=== PATIENT | female | born 1995 | race Caucasian/White ===

== ENCOUNTER 2019-10-05 09:13 | Emergency (ER) | payer OTHER, SELFPAY ==
[2019-10-05 09:24] VITALS: BP 107/62; PULSE 104; RESP 16; TEMP 36.7; O2SAT 99
--- NOTE | 2019-10-05 09:57 | ED.URI ---
HPI - URI/Sore Throat General Chief Complaint: Upper Respiratory Infection Stated Complaint: Sore Throat Time Seen by Provider: 10/05/19 09:57 Source: patient Mode of arrival: ambulatory Limitations: no limitations History of Present Illness HPI Narrative: Christina Arvizu is a 24 yo female with no PMH who comes to express care with severe sore throat x4 days that is worsening, rhinorrhea, and fever-states he has had difficulty swallowing the last 24 hours, states can barely swallow of liquids Related Data Allergies Allergy/AdvReac Type Severity Reaction Status Date / Time No Known Allergies Allergy Unknown Unverified 05/14/18 15:23 Review of Systems Review of Systems: Narrative: CONSTITUTIONAL: Denies fever, chills, sweats. EYES: Denies visual changes, redness, discharge. ENT: Denies rhinorrhea, has congestion, sore throat, mo otalgia. CARDIOVASCULAR: Denies chest pain, palpitations, edema. RESPIRATORY: Denies dyspnea, wheezing, cough GASTROINTESTINAL: Denies abdominal pain, nausea, vomiting, diarrhea. GENITOURINARY: Denies dysuria, hematuria, abnormal discharge SKIN: Denies rash or itching. MUSCULOSKELETAL: Denies acute back pain, joint pain, or myalgia. NEUROLOGIC: Denies numbness, or focal weakness. PSYCHIATRIC: Denies anxiety or depression. PENDING SALE TO [facility] Family History Family History (Updated 10/05/19 @ 10:00 by Beatriz Worthy CNP) Other No active medical problems Social History Social History (Updated 10/05/19 @ 10:00 by Beatriz Worthy CNP) Smoking status: Never smoker Alcohol intake: never Substance use: never Gender identity (if verbalized by the patient): Female Comments At time of signature, I agree with nursing past medical, surgical, social and family history. There is no relevant family history pertinent to the presenting complaint. Exam Narrative: Exam Narrative: GENERAL: This is a well-nourished, well-developed patient, in moderate distress. HEAD: normocephalic, atraumatic. EYES: Sclera clear/white. Vision is grossly intact. EARS: External ears normal, auditory canals clear and without drainage, TMs normal without perforation. Hearing grossly intact. NOSE: External nose normal with nasal discharge, nares with redness, has rhinorrhea. THROAT: Mucous membranes moist, posterior pharynx erythema with tonsillar swelling-putrid smell to pharyngx NECK: Neck supple, non-tender CARDIOVASCULAR: Regular rate and rhythm without murmurs, gallops, or rubs. RESPIRATORY: Clear to auscultation. Breath sounds equal bilaterally. No wheezes, rales, or rhonchi. GASTROINTESTINAL: Abdomen soft, non-tender, nondistended. Bowel sounds are active. No hepato-splenomegaly, or palpable masses. No guarding. SKIN: warm, intact with no suspicious lesions or rash, good texture and turgor. NEURO: awake, alert, and oriented to person, place and time. There were no obvious focal neurologic abnormalities. Steady gait EXTREMITIES: Normal range of motion. No edema. . BACK: Nontender without deformity or crepitance. No flank tenderness. Course Course Emergency Course: Strep-initial negative but treated based on appearance Vital Signs Vital signs: Vital Signs Temperature 98.1 F 10/05/19 09:24 Pulse Rate 104 H 10/05/19 09:24 Respiratory Rate 16 10/05/19 09:24 Blood Pressure 107/62 10/05/19 09:24 Pulse Oximetry 99 10/05/19 09:24 Temperature 98.1 F 10/05/19 09:24 Pulse Rate 104 H 10/05/19 09:24 Respiratory Rate 16 10/05/19 09:24 Blood Pressure 107/62 10/05/19 09:24 Pulse Oximetry 99 10/05/19 09:24 MDM - URI/Sore Throat Differential Diagnosis Differential diagnosis: Likely upper respiratory infection, sinusitis and pharyngitis Lab Data Labs: Influenza A Screen Negative Reference Range: Negative Influenza B Screen Negative Reference Range: Negative Strep Screen Presumptive Negative *(Reference Range: Negative)* Disc
== END 2019-10-05 10:09 | disposition home or self-care (01) ==
PROVIDERS: Emergency Provider Nurse Practitioner
DX: J02.0 Streptococcal pharyngitis (principal)
CPT/HCPCS: 87081; 87804; 87880; 99213; G0463

== ENCOUNTER 2020-07-26 09:17 | Emergency (ER) | payer OTHER, SELFPAY ==
[2020-07-26 09:30] VITALS: BP 101/67; PULSE 91; RESP 18; TEMP 37.3; O2SAT 100
--- NOTE | 2020-07-26 09:34 | ED.EAR ---
HPI - Ear Problem General Chief complaint: Ear Stated complaint: right ear pain Time Seen by Provider: 07/26/20 09:30 Source: patient and RN notes reviewed Mode of arrival: ambulatory Limitations: no limitations History of Present Illness HPI Narrative: 24 year old female who presents [facility] with complaints of right ear pain for the past 2 days. Patient states that she has noted some ringing and echoing in her right ear along with discomfort. Patient admits to some rhinitis with clear drainage, denies any sinus pressure or headache pain, denies any sore throat or cough. Patient denies any tragal pain or any dayana-auricle tenderness or swelling, has not taken any OTC medications for pain or any OTC cold medications. Patient denies any known fevers, chills or sweats, denies any shortness of breath or any wheezing, patient states no tobacco use. MD Complaint: ear pain Location: right ear Duration: intermittent Severity: moderate Relieving factors: nothing Exacerbating factors: nothing Context: Reports other (uses fan at work also some nasal drainage) Discharge from ear: Reports no Associated symptoms ear: tinnitus, rhinorrhea and other (pressure to right ear) Treatment prior to arrival: none Related Data Allergies Allergy/AdvReac Type Severity Reaction Status Date / Time No Known Allergies Allergy Unknown Unverified 07/26/20 09:31 Review of Systems Review of Systems: Narrative: CONSTITUTIONAL: Denies fever, chills, or sweats. EYES: Denies visual changes, redness, or discharge. ENT: Positive for clear rhinorrhea, no nasal congestion, sore throat, positive right otalgia. CARDIOVASCULAR: Denies chest pain, palpitations, or edema. RESPIRATORY: Denies cough or dyspnea. GASTROINTESTINAL: Denies abdominal pain, nausea, vomiting, or diarrhea. GENITOURINARY: Denies dysuria or hematuria. SKIN: Denies rash or itching. MUSCULOSKELETAL: Denies back pain, joint pain, or myalgia. NEUROLOGIC: Denies headache, numbness, or weakness. PSYCHIATRIC: Denies anxiety or depression. All systems reviewed & are unremarkable except as noted in HPI and below PMFSH Past Medical History Medical History (Updated 07/26/20 @ 10:06 by Alivia Todd NP) Bronchitis Surgical History Surgical History (Updated 07/26/20 @ 10:06 by Alivia L. Perez, [employer]PUT[employer]) History of tonsillectomy Family History Family History Other No active medical problems Social History Social History Smoking status: Never smoker Alcohol intake: never Substance use: never Gender identity (if verbalized by the patient): Female Comments At time of signature, agree with nursing past medical, surgical, social and family history. There is no relevant family history pertinent to the presenting complaint Exam Narrative: Exam Narrative: GENERAL: Well-appearing, well-nourished, and in no acute distress. HEAD: Normocephalic, atraumatic. EYES: PERRLA and EOMI. ENT: Nares light red, clear rhinorrhea, no epistaxis, denies any pressure to sinus area or headache on exam. Mucous membranes moist.Right TM normal with good light reflex,canal with redness and irritation, no drainage noted, Left TM normal with good light reflex, Throat pink with no lesions or exudates, post nasal drainage noted in back of throat, no tonsils NECK: Supple.no lymphadenopathy CHEST: Clear to auscultation. No respiratory distress.SAO2 100% on room air. HEART: Regular rate and rhythm. No murmur heard. Normal peripheral pulses. ABDOMEN: Soft, nontender, nondistended, normal active bowel sounds. EXTREMITIES: Normal range of motion. No edema. SKIN: Warm, dry, no rash. NEURO: No focal deficits. Alert and oriented x3. Course Vital Signs Vital signs: Vital Signs Temperature 37.3 C 07/26/20 09:30 Pulse Rate 91 07/26/20 09:30 Respiratory Rate 18 07/26/20 09:30 Blood Pressure 101/67 07/26
== END 2020-07-26 09:53 | disposition home or self-care (01) ==
PROVIDERS: Emergency Provider Registered Nurse; PCP Nurse Practitioner Family
DX: H60.91 Unspecified otitis externa, right ear (principal)
CPT/HCPCS: 99213; G0463

== ENCOUNTER 2021-05-09 10:45 | Emergency (ER) | payer SELFPAY ==
[2021-05-09 10:55] VITALS: BP 113/71; PULSE 87; RESP 16; TEMP 36.3; O2SAT 100
[2021-05-09 11:06] VITALS: BP 113/71; PULSE 87; RESP 16; TEMP 36.3; O2SAT 100
--- NOTE | 2021-05-09 11:12 | ED.NAVMDI ---
HPI - Nausea/Vomiting/Diarrhea General Chief complaint: Nausea/Vomiting/Diarrhea Stated complaint: abd pain/chills Time Seen by Provider: 05/09/21 11:12 Source: patient Mode of arrival: ambulatory Limitations: no limitations History of Present Illness HPI Narrative: Christina Arvizu is a 25 yo female with no PMH who [facility] of nausea and diarrhea for 3 days. She was seen yesterday by physician at a clinic to get her Nexplanon removed from the left arm. She denies any dysuria or any vomiting but states that she is nauseated most of the last 3 days. She is drinking fluids and eating some without difficulty Related Data Allergies Allergy/AdvReac Type Severity Reaction Status Date / Time No Known Allergies Allergy Unknown Unverified 05/09/21 10:53 Review of Systems Review of Systems: CONSTITUTIONAL: Denies fever, chills, sweats. EYES: Denies visual changes, redness, discharge. ENT: Denies rhinorrhea, congestion, sore throat, otalgia. CARDIOVASCULAR: Denies chest pain, palpitations, edema. RESPIRATORY: Denies dyspnea, wheezing, cough GASTROINTESTINAL: Denies abdominal pain, has nausea, vomiting, has diarrhea. GENITOURINARY: Denies dysuria, hematuria, abnormal discharge SKIN: Denies rash or itching. NEUROLOGIC: Denies numbness, or focal weakness. PSYCHIATRIC: Denies anxiety or depression. PMFSH Past Medical History Medical History Bronchitis Surgical History Surgical History History of tonsillectomy Family History Family History Other No active medical problems Social History Social History Smoking status: Never smoker Alcohol intake: never Substance use: never Gender identity (if verbalized by the patient): Female Comments At time of signature, I agree with nursing past medical, surgical, social and family history. There is no relevant family history pertinent to the presenting complaint. Exam Narrative: GENERAL: This is a well-nourished, well-developed patient, in mild distress. HEAD: normocephalic, atraumatic. EYES: Sclera clear/white. Vision is grossly intact. EARS: External ears normal, Hearing grossly intact. NOSE: External nose normal without nasal discharge, nares without redness, no rhinorrhea. THROAT: Mucous membranes moist, NECK: Neck supple, non-tender CARDIOVASCULAR: Regular rate and rhythm without murmurs, gallops, or rubs. RESPIRATORY: Clear to auscultation. Breath sounds equal bilaterally. No wheezes, rales, or rhonchi. GASTROINTESTINAL: Abdomen soft, non-tender, SKIN: warm, intact with no suspicious lesions or rash, good texture and turgor. Dressing on left upper arm from Nexplanon removal NEURO: awake, alert, and oriented to person, place and time. There were no obvious focal neurologic abnormalities. Steady gait EXTREMITIES: Normal range of motion. BACK: Nontender without deformity Course Course Emergency Course: Patient has had 3 days of diarrhea nausea with no other symptoms and has been able to eat UA 1+ bili, neg otherwise, Hcg - negative Rapid Covid done- negative Given Zofran and Imodium- monitor intake - if symptons not improve, go to pcp Vital Signs Vital signs: Vital Signs Temperature 97.3 F L 05/09/21 10:55 Pulse Rate 87 05/09/21 10:55 Respiratory Rate 16 05/09/21 10:55 Blood Pressure 113/71 05/09/21 10:55 Pulse Oximetry 100 05/09/21 10:55 Temperature 97.3 F L 05/09/21 11:06 Pulse Rate 87 05/09/21 11:06 Respiratory Rate 16 05/09/21 11:06 Blood Pressure 113/71 05/09/21 11:06 Pulse Oximetry 100 05/09/21 11:06 MDM - Nausea/Vomiting/Diarrhea Lab Data Labs: Lab Results 05/09/21 Range/Units 11:30 POC SARS CoV-2 Ag Negative (Negative) UCG Bedside Result
== END 2021-05-09 12:07 | disposition home or self-care (01) ==
PROVIDERS: Emergency Provider Nurse Practitioner
DX: K52.9 Noninfective gastroenteritis and colitis, unspecified (principal); Z20.822 Contact with and (suspected) exposure to COVID-19
CPT/HCPCS: 81003; 81025; 87426; 99213; C9803; G0463

== ENCOUNTER 2021-08-16 05:27 | Emergency (ER) | payer MEDICAID, SELFPAY ==
[2021-08-16 05:40] VITALS: BP 101/77; PULSE 99; RESP 19; TEMP 37.5; O2SAT 100
[2021-08-16] MEDS: SODIUM CHLORIDE 0.9% IV 1,000 ML 999 ML IV CONT (06:04)
[2021-08-16] MEDS: ONDANSETRON INJ 4 MG/2 ML VIAL IV PUSH (06:04)
[2021-08-16 06:06] LABS: Basophils Percent Auto 0.4 % (0.2-1.2); Eosinophils Absolute Auto 0.1 K/mm3 (0-0.3); Eosinophils Percent Auto 0.6 % (0-4.4); Hematocrit 41.9 % (37.0-47.0); Hemoglobin 13.9 g/dL (12.0-15.0); Immature Granulocyte Absolute 0.04 K/mm3 (0.00-0.031); Immature Granulocyte Percent A 0.4 % (0-0.5); Lymphocytes Percent Auto 5.3 % (18.3-44.2); Mean Corpuscular HGB Conc 33.2 g/dl (32-36); Mean Corpuscular Hemoglobin 29.6 pg (26-34); Mean Corpuscular Volume 89.3 fl (80-100); Mean Platelet Volume 11.9 fl (7.4-10.4); Monocytes Absolute Auto 0.6 K/mm3 (0.1-0.6); Monocytes Percent Auto 4.8 % (2.6-8.5); Neutrophils Absolute Auto 10.1 K/mm3 (1.3-6.7); Neutrophils Percent Auto 88.5 % (45.5-73.1); Platelet Count Result 141 k/mm3 (150-375); Red Blood Count 4.69 M/mm3 (4.2-5.4); Red Cell Distribution Width 12.6 % (11.5-14.5); White Blood Count 11.4 K/mm3 (4.5-10.0)
--- NOTE | 2021-08-16 06:06 | ED.NAVMDI ---
HPI - Nausea/Vomiting/Diarrhea General Chief complaint: Nausea/Vomiting/Diarrhea Stated complaint: N/V/D since midnight Time Seen by Provider: 08/16/21 05:33 History of Present Illness HPI Narrative: Patient is a 25-year-old female who presents ER with vomiting and diarrhea. Reports at midnight she woke up and started having 1 loose stool and emesis each hour. No blood in either. No fevers or chills or sweats. No known sick contacts. Reports she had a bratwurst for dinner. She tried taking some Zofran without improvement. Related Data Allergies Allergy/AdvReac Type Severity Reaction Status Date / Time No Known Allergies Allergy Unknown Verified 08/16/21 05:40 Review of Systems Review of Systems: All systems reviewed & are unremarkable except as noted in HPI and below Constitutional: Constitutional: Denies chills, Denies fever(s) and Denies weakness ENT: Denies nasal congestion and Denies sore throat Gastrointestinal: Gastrointestinal: Denies abdominal pain, Denies constipation, Reports diarrhea, Reports nausea and Reports vomiting Genitourinary: Genitourinary: Denies nocturia, Denies dysuria and Denies flank pain PMFSH Past Medical History Medical History Bronchitis Surgical History Surgical History History of tonsillectomy Family History Family History Other No active medical problems Social History Social History Smoking status: Never smoker Alcohol intake: never Substance use: never Gender identity (if verbalized by the patient): Female Exam Narrative: GENERAL: Well-appearing, well-nourished, and in no acute distress. HEAD: Normocephalic, atraumatic. NECK: Supple. CHEST: Clear to auscultation. No respiratory distress. HEART: Regular rate and rhythm. Normal peripheral pulses. ABDOMEN: Soft, nontender, nondistended. EXTREMITIES: Normal range of motion. No edema. SKIN: Warm, dry, no rash. NEURO: Alert and oriented x3. PSYCH: Normal mood and affect. Course Course Emergency Course: Patient informed of results. Feels improved. Discharge home. Abdominal exam is benign without localizing tenderness. Vital Signs Vital signs: Vital Signs Temperature 99.5 F 08/16/21 05:40 Pulse Rate 99 08/16/21 05:40 Respiratory Rate 19 08/16/21 05:40 Blood Pressure 101/77 08/16/21 05:40 Pulse Oximetry 100 08/16/21 05:40 Temperature 99.5 F 08/16/21 05:40 Pulse Rate 99 08/16/21 05:40 Respiratory Rate 19 08/16/21 05:40 Blood Pressure 101/77 08/16/21 05:40 Pulse Oximetry 100 08/16/21 05:40 MDM - Nausea/Vomiting/Diarrhea Lab Data Result diagrams: 08/16/21 06:01 08/16/21 06:01 Labs: Lab Results 08/16/21 08/16/21 Range/Units 06:01 06:01 WBC 11.4 H (4.5-10.0) K/mm3 RBC 4.69 (4.2-5.4) M/mm3 Hgb 13.9 (12.0-15.0) g/dL Hct 41.9 (37.0-47.0) % MCV 89.3 (80-100) fl MCH 29.6 (26-34) pg MCHC 33.2 (32-36) g/dl RDW 12.6 (11.5-14.5) % Plt Count 141 L (150-375) k/mm3 MPV 11.9 H (7.4-10.4) fl Immature Gran % (Auto) 0.4 (0-0.5) % Neut % (Auto) 88.5 H (45.5-73.1) % Lymph % (Auto) 5.3 L (18.3-44.2) % [place] % (Auto) 4.8 (2.6-8.5) % Eos % (Auto) 0.6 (0-4.4) % Baso % (Auto) 0.4 (0.2-1.2) % Lymph # (Auto) 0.60 L (0.9-3.2) K/mm3 [place] # (Auto) 0.6 (0.1-0.6) K/mm3 Eos # (Auto) 0.1 (0-0.3) K/mm3 Baso # (Auto) 0.0 (0.0-0.1) K/mm3 Abs Immat Gran (auto) 0.04 H (0.00-0.031) K/mm3 Absolute Neuts (auto) 10.1 H (1.3-6.7) K/mm3 Absolute Nucleated RBC 0.0 (0.0-0.012) K/mm3 Nucleated RBC % 0.0 (0.0-0.2) % Sodium 137 (137-145) mmol/L Potassium 3.6 (3.4-5.0) mmol/L Chloride 103 (98-107) mmol/L Carbon Dioxide 23 (22-30) mmol/L Anion Gap
[2021-08-16 06:16] LABS: Alanine Aminotransferase 19 U/L (4-35); Albumin Level 4.6 g/dL (3.5-5.1); Alkaline Phosphatase 71 U/L (38-126); Anion Gap 11 mmol/L (8-16); Aspartate Amino Transferase 27 U/L (14-36); Bilirubin,Total 0.8 mg/dL (0.2-1.3); Blood Urea Nitrogen 14 mg/dL (7-17); Calcium 9.4 mg/dL (8.4-10.2); Carbon Dioxide 23 mmol/L (22-30); Chloride 103 mmol/L (98-107); Estimated CRCL calculation 98 ml/min; Estimated Glomerular Filt Rate > 60; Glucose 123 mg/dL (65-110); Lipase 101 U/L (23-300); Potassium 3.6 mmol/L (3.4-5.0); Sodium 137 mmol/L (137-145)
[2021-08-16 07:18] VITALS: BP 104/70; PULSE 94; RESP 18; O2SAT 98
== END 2021-08-16 07:29 | disposition home or self-care (01) ==
PROVIDERS: Emergency Provider Emergency Medicine; PCP Nurse Practitioner Family
DX: K52.9 Noninfective gastroenteritis and colitis, unspecified (principal)
CPT/HCPCS: 36415; 80053; 83690; 85025; 96361; 96374; 99284; J2405; J7030

== ENCOUNTER 2022-01-25 08:36 | Emergency (ER) | payer OTHER, MEDICAID, SELFPAY ==
[2022-01-25 08:52] VITALS: BP 104/58; PULSE 107; RESP 16; TEMP 36.6; O2SAT 100
--- NOTE | 2022-01-25 09:48 | ED.URI ---
HPI - URI/Sore Throat General Chief Complaint: Upper Respiratory Infection Stated Complaint: uri Time Seen by Provider: 01/25/22 09:48 Source: patient Mode of arrival: ambulatory Limitations: no limitations History of Present Illness HPI Narrative: 26-year-old female presents with complaint of nasal congestion, cough, fatigue since yesterday. Denies sore throat. No fever. Denies nausea vomiting diarrhea. No shortness of breath or chest pain. Reports that she is 6 months and did not know what medication she could take to treat your symptoms. Patient also requesting a work note. All systems reviewed and negative except as noted above. Related Data Allergies Allergy/AdvReac Type Severity Reaction Status Date / Time No Known Allergies Allergy Unknown Verified 08/16/21 05:40 Review of Systems Review of Systems: CONSTITUTIONAL: Denies fever, chills, or sweats. Reports fatigue EYES: Denies visual changes, redness, or discharge. ENT: Reports rhinorrhea, congestion. Denies sore throat, or otalgia. CARDIOVASCULAR: Denies chest pain, palpitations, or edema. RESPIRATORY: Reports cough. Denies dyspnea. GASTROINTESTINAL: Denies abdominal pain, nausea, vomiting, or diarrhea. GENITOURINARY: Denies dysuria or hematuria. SKIN: Denies rash or itching. MUSCULOSKELETAL: Denies back pain, joint pain, or myalgia. NEUROLOGIC: Denies headache, numbness, or weakness. PSYCHIATRIC: Denies anxiety or depression. All other systems reviewed are negative, except as documented in HPI. PMFSH Past Medical History Medical History Bronchitis Surgical History Surgical History History of tonsillectomy Family History Family History Other No active medical problems Social History Social History Smoking status: Never smoker Alcohol intake: never Substance use: never Gender identity (if verbalized by the patient): Female Comments At time of signature, agree with nursing past medical, surgical, social and family history. There is no relevant family history pertinent to the presenting complaint. Exam Narrative: GENERAL: This is a well-nourished, well-developed patient, in no apparent distress. HEAD: normocephalic, atraumatic. EYES: PERRL. Sclera clear/white. Vision is grossly intact. EARS: External ears normal, auditory canals clear and without drainage, TMs normal without perforation. Hearing grossly intact. NOSE: External nose normal with clear nasal drainage, moderate congestion. THROAT: Mucous membranes moist, posterior pharynx clear. NECK: Neck supple, non-tender without lymphadenopathy, masses or thyromegaly. CARDIOVASCULAR: Regular rate and rhythm without murmurs, gallops, or rubs. RESPIRATORY: Clear to auscultation. Breath sounds equal bilaterally. No wheezes, rales, or rhonchi. SKIN: warm, Dry, intact with no suspicious lesions or rash, good texture and turgor. NEURO: awake, alert, and oriented to person, place and time. There were no obvious focal neurologic abnormalities. EXTREMITIES: Normal range of motion to all extremities. Course Course Level of Care: Express Care Visit Vital Signs Vital signs: Vital Signs Temperature 36.6 C 01/25/22 08:52 Pulse Rate 107 H 01/25/22 08:52 Respiratory Rate 16 01/25/22 08:52 Blood Pressure 104/58 L 01/25/22 08:52 Pulse Oximetry 100 01/25/22 08:52 Oxygen Delivery Room Air 01/25/22 08:52 Temperature 36.6 C 01/25/22 08:52 Pulse Rate 107 H 01/25/22 08:52 Respiratory Rate 16 01/25/22 08:52 Blood Pressure 104/58 L 01/25/22 08:52 Pulse Oximetry 100 01/25/22 08:52 Oxygen Delivery Room Air 01/25/22 08:52 Reviewed MDM - URI/Sore Throat MDM Narrative Medical decision making narrative: Patient is aware of diagnosis, un
== END 2022-01-25 10:08 | disposition home or self-care (01) ==
PROVIDERS: Emergency Provider Nurse Practitioner Family
DX: J06.9 Acute upper respiratory infection, unspecified (principal)
CPT/HCPCS: 99211; G0463

== ENCOUNTER 2023-09-06 16:06 | Emergency (ER) | payer OTHER, SELFPAY ==
[2023-09-06 16:15] VITALS: BP 122/67; PULSE 92; RESP 18; TEMP 36.6; O2SAT 100
--- NOTE | 2023-09-06 16:27 | ED.EAR ---
HPI - Ear Problem General Chief complaint: Ear Stated complaint: Right Ear Irritation Time Seen by Provider: 09/06/23 16:18 Source: patient Mode of arrival: ambulatory Limitations: no limitations History of Present Illness HPI Narrative: Adelina is a 28-year-old female patient presenting to the clinic today with complaints of right ear pain/sore throat. She reports the symptoms have been going on for a few days now. No fever or chills. Related Data Allergies Allergy/AdvReac Type Severity Reaction Status Date / Time No Known Allergies Allergy Unknown Verified 09/06/23 16:23 Review of Systems Review of Systems: Pertinent positives per HPI. Patient denies any fever, chills, rash, headache, visual changes, dizziness, shortness of breath, chest pain, palpitations, nausea, vomiting, diarrhea, constipation, abdominal pain, or any urinary issues. PMFSH Past Medical History Medical History Bronchitis Surgical History Surgical History History of tonsillectomy Family History Family History Other No active medical problems Social History Social History Smoking status: Never smoker Alcohol intake: never Substance use: never Gender identity (if verbalized by the patient): Female Comments At the time of my signature, I reviewed and agree with the nursing past medical, surgical, social, and family history. There is no relevant family history pertinent to the patient complaint. Exam Narrative: General: Well-developed, well nourished, in no apparent distress Head: Normocephalic, atraumatic Eyes: Pupils equally round and reactive to light bilaterally, EOM intact, sclera and conjunctive clear, no discharge, lids normal Ears: TMs intact and congested, ear canals clear, no drainage, grossly hearing normal. Nose: Nares patent, no discharge, no inflammation, no sinus tenderness. Mouth: Oropharynx red with bilateral tonsillar enlargement without lesions or masses, good dentition, MMM. Neck: Supple, trachea midline, no enlargement of anterior or posterior cervical nodes, no thyroid masses or goiter palpable. Cardio: Regular rate and rhythm, s1 and s2 normal, no murmur appreciated. Resp: Clear to auscultation bilaterally anteriorly and posteriorly, no rhonchi, rales, wheezing or rubs Course Course Emergency Course: Portions of this record may have been created with voice recognition software. Level of Care: Express Care Visit Vital Signs Vital signs: Vital Signs Temperature 36.6 C 09/06/23 16:15 Pulse Rate 92 09/06/23 16:15 Respiratory Rate 18 09/06/23 16:15 Blood Pressure 122/67 09/06/23 16:15 Pulse Oximetry 100 09/06/23 16:15 Oxygen Delivery Room Air 09/06/23 16:15 Temperature 36.6 C 09/06/23 16:15 Pulse Rate 92 09/06/23 16:15 Respiratory Rate 18 09/06/23 16:15 Blood Pressure 122/67 09/06/23 16:15 Pulse Oximetry 100 09/06/23 16:15 Oxygen Delivery Room Air 09/06/23 16:15 Vital signs reviewed Medical Decision Making MDM Narrative Medical decision making narrative: At the time of visit patient is resting comfortably on the exam table. Patient appears to be nontoxic. Strep test was positive in the clinic today. Prescription for amoxicillin was sent to the pharmacy. Supportive measures were discussed with the patient and they voiced understanding discharge instructions and agrees to treatment plan. Return precautions reviewed Differential Diagnosis Differential Diagnosis: Otitis media, otitis externa, eustachian tube dysfunction, upper respiratory infection, strep pharyngitis, serous otitis Vital Signs Vital Signs: Vital Signs Temperature 36.6 C 09/06/23 16:15 Pulse Rate 92 09/06/23 16:15 Respiratory Rate
== END 2023-09-06 16:35 | disposition home or self-care (01) ==
PROVIDERS: Emergency Provider Nurse Practitioner Family
DX: J02.0 Streptococcal pharyngitis (principal)
CPT/HCPCS: 87880; 99213; G0463